=== PATIENT | female | born 1965 | race Two or more races ===

== ENCOUNTER 2016-12-26 08:01 | Observation (INO) | payer OTHER ==
[2016-12-22 15:33] VITALS: BMI 32.9
[~2016-12-26] VITALS: Ht 162.6 cm; Wt 86.2 kg
[2016-12-26] VITALS (20 sets, daily range): BP systolic 126–204; BP diastolic 69–102; PULSE 63–75; RESP 14–23; Ht 162.6 cm; Wt 86.2 kg
[~2016-12-26 08:01] MED LIST: BUPIVACAINE 0.25% (MPF) 30 ML INJ INJ ONE; CEFAZOLIN 2 GM/50 ML (PMX) 50 ML IVPB ONE; CLON0.2T5 PO; FOLI-49 PO; MYCO250C3 PO; NEPHRO VITE PO; OMEP20CA16 PO; PRED5 PO; SOD CHLORIDE 0.9% 1,000 ML IV ONE; SUGAMMADEX SODIUM 200 MG/2 ML VIAL IV ONE; TACR1CAP PO
[2016-12-26] MEDS ORDERED: VIT1TAB.4 PO (08:45)
[2016-12-26] MEDS ORDERED: ROCURONIUM 50 MG INJ ONE (10:02)
[2016-12-26] MEDS ORDERED: PROPOFOL 20 ML ONE (10:02)
[2016-12-26] MEDS ORDERED: LIDOCAINE 1% (MDV) 20 ML INJ ONE (10:02)
[2016-12-26] MEDS ORDERED: MIDAZOLAM 1 MG/ML 2 ML INJ ONE (10:02)
[2016-12-26] MEDS ORDERED: BUPIVACAINE 0.25% (MPF) 30 ML INJ ONE (10:54)
[2016-12-26] MEDS ORDERED: CEFAZOLIN 1 GM INJ ONE (11:21)
[2016-12-26] MEDS ORDERED: PHENYLephrine (100 MCG/ML) 5ML SYG ONE (11:34)
[2016-12-26] MEDS ORDERED: LABETALOL HCL 20MG INJ ONE (11:49)
[2016-12-26] MEDS ORDERED: FAMOTIDINE 20 MG INJ ONE (11:57)
[2016-12-26] MEDS ORDERED: ONDANSETRON 4 MG INJ ONE ×2 (11:57→12:49)
[2016-12-26] MEDS ORDERED: DEXAMETHASONE 4 MG/ML 1 ML INJ ONE (11:58)
[2016-12-26] MEDS ORDERED: morphine 2 MG INJ IV PRN (12:30)
[2016-12-26] MEDS ORDERED: DIPHENHYDRAMINE 50 MG INJ IV PRN (12:30)
[2016-12-26] MEDS: SOD CHLORIDE 0.9% 1,000 ML IV SCH ×3 (12:30→22:10)
[2016-12-26] MEDS ORDERED: MEPERIDINE 25 MG INJ IV PRN (12:30)
[2016-12-26] MEDS ORDERED: hydrALAzine 20 MG INJ IV PRN (12:30)
[2016-12-26] MEDS ORDERED: HYDROCODONE/APAP (5/325) TAB PO PRN (12:30)
[2016-12-26] MEDS ORDERED: HYDROmorphONE (0.2 MG/ML) 10ML SYG IV PRN ×2 (12:30)
--- NOTE | 2016-12-26 12:30 | OPR ---
Date/Time of Note Date/Time of Note DATE: 12/26/16 TIME: 12:30 Operative Report Preoperative Diagnosis hyperparathyroidism Postoperative Diagnosis same Operation/Procedure Performed left super and left inferior parathyroidectomy localized adjacent tissue transfer with the use of skin flaps Surgeon: Rowdy LLOYD Specimens left superior and left inferior parathyroid glands Rodwy LLOYD Dec 26, 2016 12:30
[2016-12-26] MEDS ORDERED: ONDANSETRON 4 MG INJ IV STA (12:47)
[2016-12-26] MEDS: CEFAZOLIN 2 GM/50 ML (PMX) 50 ML IVPB SCH ×2 (13:00→20:01)
[2016-12-26] MEDS ORDERED: BUPIVACAINE 0.25% (MPF) 10 ML 10 ML VIAL ONE (13:11)
[2016-12-26 13:31] LABS: ADD SCAN DIFF NO
[2016-12-26 13:33] LABS: BASOPHILS % 0.3 % (0.0-2.0); EOSINOPHILS # 0.1 10^3/ul (0.0-0.5); EOSINOPHILS % 1.1 % (0.0-7.0); HEMATOCRIT 35.7 % (37.0-47.0); HEMOGLOBIN 12.3 g/dl (12.0-16.0); LYMPHOCYTES % 17.8 % (15.0-51.0); MEAN CORPUSCULAR HGB CONC 34.5 g/dl (32.0-37.0); MEAN CORPUSCULAR VOLUME 89.9 fl (82.0-101.0); MEAN PLATELET VOLUME 10.9 fl (7.4-10.4); MONOCYTE # 0.4 10^3/ul (0.3-0.9); MONOCYTES % 3.8 % (0.0-11.0); NEUTROPHIL # 8.5 10^3/ul (1.6-7.5); NEUTROPHILS % 76.3 % (39.0-77.0); PLATELET COUNT 188 10^3/UL (140-415); RED BLOOD COUNT 3.97 10^6/ul (4.20-5.40); RED CELL DISTRIBUTION WIDTH 13.3 % (11.5-14.5); WHITE BLOOD COUNT 11.2 10^3/ul (4.8-10.8)
[2016-12-26 13:54] LABS: ALBUMIN 4.3 g/dl (3.3-4.9); ALBUMIN/GLOBULIN RATIO 1.48; CALCIUM 9.7 mg/dl (8.4-10.2); CREATININE 0.78 mg/dl (0.44-1.00); POTASSIUM 3.7 mmol/L (3.5-5.1); TOTAL PROTEIN 7.2 g/dl (6.1-8.1)
[2016-12-26] MEDS: ONDANSETRON 4 MG INJ IV PRN ×2 (15:10→18:50)
--- NOTE | 2016-12-26 16:28 | OPR ---
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 She has had renal moore splantation. Risks, alternatives, benefits, and personnel were discussed with the patient. The pat ient expressed understanding and consents to the operation. In particular, contradicting study find ings were discussed that a parathyroid scan revealed no abnormalities; however, ultrasound showed a left parathyroid adenoma. The patient was told that exploration would be performed and the parathyr oid glands would be removed as appropriate. PREOPERATIVE DIAGNOSIS: Hyperparathyroidism. POSTOPERATIVE DIAGNOSIS: Hyperparathyroidism. OPERATION PERFORMED 1. Left superior parathyroidectomy. 2. Left inferior parathyroidectomy. 3. Localized adjacent tissue transfer with the use of skin flaps, 14 square cm. SURGEON: Asad Lloyd MD SPECIMEN: Left upper and left lower parathyroid gland. COMPLICATIONS: None. ANESTHESIA: General. PROCEDURE: The patient was taken to the OR and prepped and draped in the usual sterile fashion. Garces rgical timeout was performed. IV antibiotics were given. Collar incision was made with a 15 blade. Dissection cautery was carried down through the platysma and down to the strap muscles. The strap muscles were split in midline. The left strap muscles were retracted laterally. The thyroid gland was identified and medially mobilized. The middle thyroidal vein is ligated. Upon initial inspect ion, there is a glandular mass inferior to the left lower thyroid pole. Additionally, there is a gl andular structure lateral to the superior left pole. Both of these are ligated and resected and sen t for specimen with the pathologist. Pathologic intraoperative confirmation shows that they is both hypercellular parathyroid tissue in both glandular structures. Further exploration was not perform ed. A Valsalva maneuver of 40 cm of water was performed. There was no evidence of further bleeding . Strap muscles were reapproximated with interrupted 3-0 Vicryl. The platysma was reapproximated w ith interrupted 3-0 Vicryl. Skin was closed using interrupted 3-0 Vicryl and running 4-0 Monocryl t o close with localized adjacent tissue transfer with the use of skin flaps. Local anesthesia was in jected. Dry dressings were applied. Dictated By: ASAD LLOYD MD SB/GLALO Conf#: [id number] DID#: [id number]
[2016-12-26] MEDS: FOLIC ACID 1 MG TAB PO SCH (19:57)
[2016-12-26] MEDS: predniSONE 5 MG TAB PO SCH (19:57)
[2016-12-26] MEDS: PANTOPRAZOLE (EC) 40 MG TAB PO SCH (19:57)
[2016-12-26] MEDS: METOCLOPRAMIDE 10 MG INJ IV PRN (20:45)
[2016-12-26] MEDS: TACROLIMUS 1 MG CAP PO SCH (21:40)
[2016-12-26] MEDS: MYCOPHENOLATE 250 MG CAP PO SCH (21:40)
--- NOTE | 2016-12-27 00:30 | HP ---
DATE OF ADMISSION: 12/26/2016 CHIEF COMPLAINT AND HISTORY OF PRESENT ILLNESS: The patient is a 51-year-old female with history of hypertension leading to end-stage renal disease status post AV fistula. Subsequently, the patient underwent renal transplant and has had normal renal function since then. The patient was seen by Dr Aleshia Saha as an outpatient for tertiary hypothyroidism. The patient prior to surgery had parathyroid sc an, which was negative for adenoma. The patient was seen by Dr. Moncada and Dr. Saha as an outpa tient and was brought into the hospital today. The patient underwent left superior parathyroidectom y, left inferior parathyroidectomy, and localized tissue transfer with the use of skin flaps. Surge ry was performed by Dr. Saha. The patient postoperatively had significant nausea and vomiting. The patient is being readmitted for further evaluation and management. The patient denied any chest nicholas n or shortness of breath, no reported abdominal pain, no reported leg edema. Patient does not have any weakness or numbness in any extremity. Patient remains awake, alert. The patient does have pos toperative pain. REVIEW OF SYSTEMS: The rest of the systems were unremarkable. PAST SURGICAL HISTORY: Status post left upper extremity AV fistula and renal transplant. ALLERGIES: . SOCIAL HISTORY: No smoking, no alcohol. FAMILY HISTORY: Noncontributory. PHYSICAL EXAMINATION: GENERAL: The patient is conscious, awake, alert. VITAL SIGNS: Temperature 97.5, pulse 77, respirations 16, blood pressure 140/72, O2 saturation 97% on room air. HEENT: No eye discharge or redness. Extraocular movement intact. Oropharynx examination and neck examination are deferred due to recent surgery. CHEST: Fairly clear. CARDIOVASCULAR: S1, S2 normal. No murmur. ABDOMEN: Soft, nondistended, nontender. Bowel sounds present. EXTREMITIES: No leg edema. NEUROLOGIC: The patient is awake, alert, fairly oriented with no gross focal deficit. LABORATORY DATA: Sodium 141, potassium 3.7, BUN 19, creatinine 0.7, glucose 152, calcium 9.7. Live r enzymes: Normal. WBC 11.2, hemoglobin 12.3, platelets 198. IMPRESSION: 1. Tertiary hypothyroidism. 2. Hypertension. 3. End-stage renal disease, status post renal transplant. PLAN: Patient admitted to the medical floor. Patient will be given IV fluid and will also be given IV cefazolin as per protocol. Patient will be given [place] and IV morphine for pain control, SCDs f or DVT prophylaxis. The patient will be continued on Catapres, folic acid, CellCept, prednisone, Pr ograf as before. We will continue proton pump inhibitor and multivitamin as at home. Will have fol lowup CBC and complete metabolic panel tomorrow. We will use IV Zofran for nausea and vomiting. Pl an of care discussed with the patient's family. Dictated By: CHRISTOPHER CARDONA/GALLO Conf#: [id number] DID#: [id number]
[2016-12-27] MEDS: SOD CHLORIDE 0.9% 1,000 ML IV SCH ×3 (02:32→19:30)
[2016-12-27] MEDS: CEFAZOLIN 2 GM/50 ML (PMX) 50 ML IVPB SCH (04:36)
[2016-12-27 05:20] LABS: ADD SCAN DIFF NO
[2016-12-27 05:23] LABS: BASOPHILS % 0.2 % (0.0-2.0); HEMATOCRIT 36.7 % (37.0-47.0); HEMOGLOBIN 12.3 g/dl (12.0-16.0); LYMPHOCYTES % 8.1 % (15.0-51.0); MEAN CORPUSCULAR HEMOGLOBIN 30.1 pg (29.0-33.0); MEAN CORPUSCULAR HGB CONC 33.5 g/dl (32.0-37.0); MEAN CORPUSCULAR VOLUME 89.7 fl (82.0-101.0); MEAN PLATELET VOLUME 11.6 fl (7.4-10.4); MONOCYTE # 0.5 10^3/ul (0.3-0.9); MONOCYTES % 3.9 % (0.0-11.0); NEUTROPHIL # 10.4 10^3/ul (1.6-7.5); NEUTROPHILS % 87.4 % (39.0-77.0); PLATELET COUNT 191 10^3/UL (140-415); RED BLOOD COUNT 4.09 10^6/ul (4.20-5.40); RED CELL DISTRIBUTION WIDTH 13.3 % (11.5-14.5); WHITE BLOOD COUNT 11.9 10^3/ul (4.8-10.8)
[2016-12-27 05:54] LABS: ALBUMIN 4.1 g/dl (3.3-4.9); ALBUMIN/GLOBULIN RATIO 1.41; BILIRUBIN,INDIRECT 0.2 mg/dl (0-1.1); BILIRUBIN,TOTAL 0.2 mg/dl (0.2-1.3); CALCIUM 9.3 mg/dl (8.4-10.2); CREATININE 0.89 mg/dl (0.44-1.00); POTASSIUM 4.2 mmol/L (3.5-5.1)
[2016-12-27] MEDS: METOCLOPRAMIDE 10 MG INJ IV PRN (06:24)
[2016-12-27] MEDS: PANTOPRAZOLE (EC) 40 MG TAB PO SCH ×2 (06:27→18:11)
[2016-12-27 07:33] VITALS: BP 131/65; RESP 16
[2016-12-27] MEDS: predniSONE 5 MG TAB PO SCH (08:55)
[2016-12-27] MEDS: FOLIC ACID 1 MG TAB PO SCH (08:55)
[2016-12-27] MEDS: MYCOPHENOLATE 250 MG CAP PO SCH (08:56)
[2016-12-27] MEDS: TACROLIMUS 1 MG CAP PO SCH (08:56)
[2016-12-27] MEDS ORDERED: MULTIVIT/CA CARB/B CMPLX/FA TAB PO SCH (09:00)
--- NOTE | 2016-12-27 13:39 | PN ---
Date/Time of Note Date/Time of Note DATE: 12/27/16 TIME: 13:39 Assessment/Plan VTE Prophylaxis VTE Prophylaxis Intervention: SCD's Lines/Catheters IV Catheter Type (from Nrsg): Peripheral IV Assessment/Plan Chief Complaint/Hosp Course s/p parathyroidectomy Problems: Assessment/Plan doing well dc home Subjective 24 Hr Interval Summary Free Text/Dictation doing well, tolerating diet Exam/Review of Systems Vital Signs Vitals Vital Signs Date Time Temp Pulse Resp B/P Pulse Ox O2 Delivery O2 Flow Rate FiO2 12/27/16 07:33 98.8 73 16 131/65 95 12/26/16 13:55 Room Air Intake and Output 12/26/16 12/26/16 12/27/16 15:00 23:00 07:00 Intake Total 100 ml 760 ml 1920 ml Output Total 850 ml Balance 100 ml 760 ml 1070 ml Exam c/d/i Results Result Diagram: 12/27/16 0452 12/27/16 0452 Results 24 hrs Laboratory Tests Test 12/27/16 04:52 White Blood Count 11.9 H Red Blood Count 4.09 L Hemoglobin 12.3 Hematocrit 36.7 L Mean Corpuscular Volume 89.7 Mean Corpuscular Hemoglobin 30.1 Mean Corpuscular Hemoglobin Concent 33.5 Red Cell Distribution Width 13.3 Platelet Count 191 Mean Platelet Volume 11.6 H Neutrophils % 87.4 H Lymphocytes % 8.1 L Monocytes % 3.9 Eosinophils % 0.0 Basophils % 0.2 Nucleated Red Blood Cells % 0.0 Neutrophils # 10.4 H Lymphocytes # 1.0 Monocytes # 0.5 Eosinophils # 0.0 Basophils # 0.0 Nucleated Red Blood Cells # 0.0 Sodium Level 143 Potassium Level 4.2 Chloride Level 111 H Carbon Dioxide Level 20 L Anion Gap 16 Blood Urea Nitrogen 21 H Creatinine 0.89 Glucose Level 134 Calcium Level 9.3 Total Bilirubin 0.2 Direct Bilirubin 0.00 Indirect Bilirubin 0.2 Aspartate Amino Transf (AST/SGOT) 47 H Alanine Aminotransferase (ALT/SGPT) 47 Alkaline Phosphatase 89 Total Protein 7.0 Albumin 4.1 Globulin 2.90 Albumin/Globulin Ratio 1.41 Medications Medications Current Medications Morphine Sulfate (morphine) 2 mg Q2H PRN IV PAIN LEVEL 6-10 Last administered on 12/26/16t 14:40; Admin Dose 2 MG; Start 12/26/16 at 12:30 Acetaminophen/ Hydrocodone Bitart 1 tab 1 tab Q6H PRN PO PAIN LEVEL 6-10; Start 12/26/16 at 12:30 Sodium Chloride (NS) 1,000 ml @ 100 mls/hr Q10H IV Last administered on 02:32; Admin Dose 100 MLS/HR; Start 12/26/16 at 12:30 Ondansetron HCl (Zofran Inj) 4 mg Q6H PRN IV NAUSEA AND/OR VOMITING Last administered on 12/26/16 18:50; Admin Dose 4 MG; Start 12/26/16 at 15:00 Clonidine (Catapres) 0.2 mg Q8 PO Last administered on 12/27/16 06:27; Admin Dose 0.2 MG; Start 12/26/16 at 22:00 Folic Acid (Folic Acid) 1 mg DAILY PO Last administered on 12/27/16 08:55; Admin Dose 1 MG; Start 12/26/16 at 19:00 Mycophenolate Mofetil (Cellcept) 250 mg BID PO Last administered on 12/27/16 08:56; Admin Dose 250 MG; Start 12/26/16 at 21:00 Prednisone (Prednisone) 5 mg DAILY PO Last administered on 12/27/16 08:55; Admin Dose 5 MG; Start 12/26/16 at 19:00 Tacrolimus (Prograf) 1 mg Q12 PO Last administered on 12/27/16 08:56; Admin Dose 1 MG; Start 12/26/16 at 21:00 Pantoprazole (Protonix Tab) 40 mg BID@06,18 PO Last administered on 12/27/16 06:27; Admin Dose 40 MG; Start 12/26/16 at 20:00 Multivit/Ca Carb/ B Cmplx/FA/Prenat (Tanika-Pablo) 1 tab DAILY PO Last administered on 12/27/16 08:55; Admin Dose 1 TAB; Start 12/27/16 at 09:00 Metoclopramide HCl (Reglan) 10 mg Q6H PRN IV N/V Last administered on 06:24; Admin Dose 10 MG; Start 12/26/16 at 21:00 Rowdy LLOYD Dec 27, 2016 13:39
[2016-12-27] MEDS ORDERED: ONDA-43 PO (14:47)
[2016-12-27] MEDS ORDERED: HYDR-3498 PO (14:47)
[2016-12-27 20:20] VITALS: BP 128/63; PULSE 61; RESP 18
--- NOTE | 2016-12-30 20:10 | DS ---
Date/Time of Note Date/Time of Note DATE: 12/30/16 TIME: 20:07 Discharge Summary Admission/Discharge Info Admit Date/Time Dec 26, 2016 at 12:30 Discharge Date/Time Dec 27, 2016 at 20:50 Discharge Diagnosis 1. Tertiary hypothyroidism. 2. Hypertension. 3. End-stage renal disease, status post renal transplant. Patient Condition: Good Hx of Present Illness The patient is a 51-year-old female with history of hypertension leading to end -stage renal disease status post AV fistula. Subsequently, the patient underwent renal transplant and has had normal renal function since then. The patient was seen by Dr. Saha as an outpatient for tertiary hypothyroidism. The patient prior to surgery had parathyroid scan, which was negative for adenoma. The patient was seen by Dr. Moncada and Dr. Saha as an outpatient and was brought into the hospital today. The patient underwent left superior parathyroidectomy , left inferior parathyroidectomy, and localized tissue transfer with the use of skin flaps. Surgery was performed by Dr. Saha. The patient postoperatively had significant nausea and vomiting. The patient is being readmitted for further evaluation and management. The patient denied any chest pain or shortness of breath, no reported abdominal pain, no reported leg edema. Patient does not have any weakness or numbness in any extremity. Patient remains awake, alert. The patient does have postoperative pain. Hospital Course 1. Tertiary hypothyroidism, s/p parathyroidectomy. 2. Hypertension. 3. End-stage renal disease, status post renal transplant. Home Meds Active Scripts Ondansetron Hcl* (Zofran*) 4 Mg Tab, 4 MG PO Q4H Y for NAUSEA AND OR VOMITING, # 30 TAB Prov:GRIS ARMENDARIZ 12/27/16 Hydrocodone Bit-Acetaminophen (Hydrocodone Bit-APAP) 5-325MG Tablet, 1 TAB PO Q6H Y for PAIN LEVEL 6-10, #20 TAB Prov:GRIS ARMENDARIZ 12/27/16 Reported Medications Vit B Complex & C No.13/Fa/D3 (NEPHROCAPS QT TABLET) 1 Each Tab.rapdis, 1 EACH PO DAILY 12/26/16 Tacrolimus* (Tacrolimus*) 1 Mg Capsule, 1 MG PO Q12, CAP 12/22/16 Folic Acid* (Folic Acid*) 1 Mg Tablet, 1 MG PO DAILY, TAB 12/22/16 Clonidine Hcl* (Clonidine Hcl*) 0.2 Mg Tablet, 0.2 MG PO Q8, TAB 12/22/16 Mycophenolate Mofetil* (Cellcept*) 250 Mg Capsule, 250 MG PO BID, CAP 12/22/16 Omeprazole* (Omeprazole*) 20 Mg Capsule.dr, 20 MG PO BID, #60 CAP 12/22/16 Prednisone* (Prednisone*) 5 Mg Tab, 5 MG PO DAILY, TAB 12/22/16 Discontinued Reported Medications [Nephro Pablo] No Conflict Check, 1 TAB PO DAILY 12/22/16 Follow-up Plan F/up with Dr Saha in 1-2 weeks. Primary Care Provider MD KALA Perez SVETLANA Dec 30, 2016 20:10
== END 2016-12-27 20:50 | disposition home or self-care (01) ==
LOC: SDS 08:01 → MS2 12:30
PROVIDERS: ADMIT Internal Medicine; ATTEND Surgery
DX: E03.8 Other specified hypothyroidism (principal); I12.0 Hypertensive chronic kidney disease with stage 5 chronic kidney disease or end stage renal disease; N18.6 End stage renal disease; Z99.2 Dependence on renal dialysis
CPT/HCPCS: 60500; 80053; 85025; 88305; 88331; 96365; 96375; 96376; J0360; J0690; J1100; J1170; J2250; J2270; J2405; J2765; J3010; J7030; J7507; J7512; J7517; Z7500; Z7512; Z7610; G0378; J2370